=== PATIENT | male | born 1950 | race Caucasian/White ===

== ENCOUNTER 2017-09-05 06:52 | Day surgery (SDC) | payer OTHER ==
[~2017-09-05] VITALS: Ht 170.2 cm; Wt 75.5 kg
[~2017-09-05 06:52] MED LIST: CYCLOPENTOLATE HCL 2% 2 ML OPHTHALMIC SOLUTION ONE; KETOROLAC TROMETHAMINE 0.5% 5 ML OPHTHALMIC SOLUTION ONE; MOXIFLOXACIN HCL 0.5% 3 ML OPHTHALMIC SOLUTION ONE; PHENYLEPHRINE HCL 2.5% 2 ML OPHTHALMIC SOLUTION ONE; RINGERS SOLUTION,LACTATED 500 ML IV ONE; TETRACAINE HCL/PF 0.5% 4 ML OPHTHALMIC SOLUTION ONE
[2017-09-05] MEDS ORDERED: EPINEPHrine 1:1,000 [1 MG/ML] AMP IM ONE (06:53)
[2017-09-05] MEDS ORDERED: BRIMONIDINE TARTRATE 0.15% 5 ML OPHTHALMIC SOLUTION OS ONE (06:53)
[2017-09-05] MEDS ORDERED: TETRACAINE HCL VISCOUS 0.5% 5 ML OPHTHALMIC SOLUTION OS ONE (06:53)
[2017-09-05] MEDS ORDERED: FentaNYL CITRATE-PF 100 MCG/2 ML VIAL IVP ONE (06:53)
[2017-09-05] MEDS ORDERED: MIDAZOLAM HCL 2 MG/2 ML VIAL IVP ONE (06:53)
[2017-09-05] MEDS ORDERED: HYALURONATE SODIUM 12 MG/ML 0.8 ML SYRINGE IO ONE (06:53)
[2017-09-05] MEDS ORDERED: LIDOCAINE HCL/PF 1% 2 ML VIAL INJ ONE (06:53)
[2017-09-05] MEDS ORDERED: HYALURONATE SOD/CHONDROITIN SOD 0.5 ML VIAL IO ONE (06:53)
[2017-09-05] MEDS ORDERED: POVIDONE-IODINE 10% 15 ML SOLUTION UD TP ONE (06:53)
[2017-09-05] MEDS ORDERED: RINGERS SOLUTION,LACTATED 500 ML IV ONE (07:00)
[2017-09-05] MEDS: PHENYLEPHRINE HCL 2.5% 2 ML OPHTHALMIC SOLUTION OS SCH ×3 (07:35→07:46)
[2017-09-05] MEDS: CYCLOPENTOLATE HCL 2% 2 ML OPHTHALMIC SOLUTION OS SCH ×3 (07:35→07:46)
[2017-09-05] MEDS: KETOROLAC TROMETHAMINE 0.5% 5 ML OPHTHALMIC SOLUTION OS SCH ×3 (07:36→07:56)
[2017-09-05] MEDS: MOXIFLOXACIN HCL 0.5% 3 ML OPHTHALMIC SOLUTION OS SCH ×3 (07:36→07:56)
[2017-09-05] MEDS ORDERED: DICLOFENAC SODIUM 0.1% 2.5 ML OPHTHALMIC SOLUTION OS SCH (09:00)
[2017-09-05] MEDS ORDERED: TETRACAINE HCL/PF 0.5% 4 ML OPHTHALMIC SOLUTION OS ONE (09:00)
[2017-09-05] MEDS ORDERED: AcetaZOLAMIDE 250 MG TABLET PO ONE (09:00)
[2017-09-05] MEDS ORDERED: ACETAMINOPHEN/CODEINE 300-30 MG TABLET PO PRN (09:00)
[2017-09-05] MEDS ORDERED: AcetaZOLAMIDE 250 MG TABLET ONE (09:09)
== END 2017-09-05 10:45 | disposition home or self-care (01) ==
LOC: SURGERY 06:52
PROVIDERS: ATTEND Ophthalmology
DX: H25.12 Age-related nuclear cataract, left eye (principal); F17.200 Nicotine dependence, unspecified, uncomplicated; Z72.89 Other problems related to lifestyle; Z98.41 Cataract extraction status, right eye; Z98.890 Other specified postprocedural states
CPT/HCPCS: 66984; 93005; C1780; J0171; J2250; J3010; J3490 ×2; J7120

== ENCOUNTER 2017-11-07 10:21 | Day surgery (SDC) | payer OTHER ==
[~2017-11-07] VITALS: Ht 167.6 cm; Wt 72.0 kg
[~2017-11-07 10:21] MED LIST changes: +DICLOFENAC SODIUM 0.1% 2.5 ML OPHTHALMIC SOLUTION ONE; -KETOROLAC TROMETHAMINE 0.5% 5 ML OPHTHALMIC SOLUTION ONE
[2017-11-07] MEDS ORDERED: FentaNYL CITRATE-PF 100 MCG/2 ML VIAL IVP ONE (10:22)
[2017-11-07] MEDS ORDERED: TETRACAINE HCL VISCOUS 0.5% 5 ML OPHTHALMIC SOLUTION OD ONE (10:22)
[2017-11-07] MEDS ORDERED: HYALURONATE SOD/CHONDROITIN SOD 0.5 ML VIAL IO ONE (10:22)
[2017-11-07] MEDS ORDERED: BRIMONIDINE TARTRATE 0.15% 5 ML OPHTHALMIC SOLUTION OD ONE (10:22)
[2017-11-07] MEDS ORDERED: MIDAZOLAM HCL 2 MG/2 ML VIAL IVP ONE (10:22)
[2017-11-07] MEDS ORDERED: POVIDONE-IODINE 10% 15 ML SOLUTION UD TP ONE (10:22)
[2017-11-07] MEDS ORDERED: LIDOCAINE HCL/PF 1% 2 ML VIAL IM ONE (10:22)
[2017-11-07] MEDS ORDERED: HYALURONATE SODIUM 12 MG/ML 0.8 ML SYRINGE IO ONE (10:22)
[2017-11-07] MEDS: CYCLOPENTOLATE HCL 2% 2 ML OPHTHALMIC SOLUTION OD SCH ×3 (10:41→10:49)
[2017-11-07] MEDS: PHENYLEPHRINE HCL 2.5% 2 ML OPHTHALMIC SOLUTION OD SCH ×3 (10:41→10:49)
[2017-11-07] MEDS: DICLOFENAC SODIUM 0.1% 2.5 ML OPHTHALMIC SOLUTION OD SCH ×3 (10:42→10:56)
[2017-11-07] MEDS: MOXIFLOXACIN HCL 0.5% 3 ML OPHTHALMIC SOLUTION OD SCH ×3 (10:42→10:56)
[2017-11-07] MEDS ORDERED: ACETAMINOPHEN/CODEINE 300-30 MG TABLET PO PRN (11:30)
[2017-11-07] MEDS ORDERED: TETRACAINE HCL/PF 0.5% 4 ML OPHTHALMIC SOLUTION OD ONE (11:30)
[2017-11-07] MEDS ORDERED: AcetaZOLAMIDE 250 MG TABLET ONE (12:17)
[2017-11-07] MEDS ORDERED: AcetaZOLAMIDE 250 MG TABLET PO ONE (13:30)
== END 2017-11-07 13:50 | disposition home or self-care (01) ==
LOC: SURGERY 10:21
PROVIDERS: ATTEND Ophthalmology
DX: H25.11 Age-related nuclear cataract, right eye (principal); I10 Essential (primary) hypertension; F17.210 Nicotine dependence, cigarettes, uncomplicated; Z98.890 Other specified postprocedural states; Z72.89 Other problems related to lifestyle
CPT/HCPCS: 66984; 93005; C1780; J2250; J3010; J3490 ×2; J7120